=== PATIENT | female | born 1980 | race African-American/Black ===

== ENCOUNTER 2016-11-27 12:54 | Day surgery (SDC) | payer OTHER ==
[2016-11-23 14:39] VITALS: BMI 43.2
[~2016-11-27 12:54] MED LIST: LEVOFLOXACIN 500 MG PREMIX BAG IVPB ONE
[2016-11-27] MEDS ORDERED: oxyCODONE HCL 5 MG TABLET PO PRN (13:39)
[2016-11-27] MEDS ORDERED: ONDANSETRON 4 MG/2 ML VIAL IVPUSH PRN (13:39)
[2016-11-27] MEDS ORDERED: LACTATED RINGERS SOLUTION 1,000 ML IV SCH (13:45)
[2016-11-27] MEDS ORDERED: PROPOFOL 20 ML ONE (14:11)
[2016-11-27] MEDS ORDERED: MIDAZOLAM HCL 2 MG/2 ML SINGLE DOSE VIAL ONE ×2 (14:11→14:16)
[2016-11-27] MEDS ORDERED: LEVOFLOXACIN 500 MG PREMIX BAG IVPB ONE (14:16)
[2016-11-27 15:04] VITALS: TEMP 98
--- NOTE | 2016-11-27 16:44 | OP ---
Operative Note - Note: Operative Date: 11/27/16 Pre-Operative Diagnosis: right renal stones Operation: right eswl Findings: 9mm right mid pole stone Post-Operative Diagnosis: Same as Pre-op Surgeon: Sina Kerr Anesthesia: General
[2016-11-27 16:48] VITALS: BP 120/68; PULSE 76
--- NOTE | 2016-11-28 14:42 | OP ---
DATE OF OPERATION: 11/27/2016 PREOPERATIVE DIAGNOSIS: Right renal stone. POSTOPERATIVE DIAGNOSIS: Right renal stone. PROCEDURE: Right extracorporeal shock wave lithotripsy. ATTENDING: Jackson Major MD ANESTHESIA: General. DESCRIPTION OF OPERATION: The patient was brought in the operating room and placed in supine position on the operating room table. Ultrasonography and fluoroscopy were performed. A right mid-pole stone measuring 9 mm was identified. General anesthesia and antibiotics were then administered. Extracorporeal shock wave lithotripsy was then performed; 3000 impulses at 20 joules of power were administered to the stone. Excellent fragmentation of the real-time ultrasonography and fluoroscopy was noted. No complications noted. The patient tolerated the procedure very well. Disposition of the patient was to the recovery room. JACKSON MAJOR M.D. [id number]
== END 2016-11-27 16:15 | disposition home or self-care (01) ==
LOC: JASU-SURG 12:54
PROVIDERS: ATTEND Urology
PROC: 0TF3XZZ Fragmentation in Right Kidney Pelvis, External Approach (ICD-10-PCS; principal; 2016-11-27 14:45)
DX: N20.0 Calculus of kidney (principal)
CPT/HCPCS: 84703; 94760

== ENCOUNTER 2022-11-09 05:00 | Day surgery (SDC) | payer OTHER ==
[2022-11-03 16:03] VITALS: BMI 45.1
[2022-11-09] MEDS ORDERED: ACETAMINOPHEN 1000 MG/100 ML BAG IVPB ONE (06:30)
[2022-11-09] MEDS ORDERED: CEFAZOLIN 3 GM in DEXTROSE 5%-WATER - 100 ML IVPB ONE (06:30)
[2022-11-09] MEDS ORDERED: PHENAZOPYRIDINE HCL 100 MG TABLET (FP) PO ONE (06:30)
[2022-11-09] MEDS ORDERED: ceFAZolin SODIUM 1 GM VIAL ONE ×3 (06:33→07:07)
[2022-11-09] MEDS ORDERED: DEXAMETHASONE SOD PHOSPHATE 4 MG/1 ML VIAL ONE ×2 (06:55→07:08)
[2022-11-09] MEDS ORDERED: METOCLOPRAMIDE HCL INJECTION 10 MG/2 ML VIAL ONE (06:55)
[2022-11-09] MEDS ORDERED: LIDOCAINE HCL/PF 2% SDV 5ML VIAL ONE (06:55)
[2022-11-09] MEDS ORDERED: SODIUM CHLORIDE 0.9% P/F 10 ML VIAL IJ ONE ×4 (06:55→07:11)
[2022-11-09] MEDS ORDERED: ONDANSETRON 4 MG/2 ML VIAL ONE (06:55)
[2022-11-09] MEDS ORDERED: KETOROLAC TROMETHAMINE 30 MG/1 ML VIAL ONE (06:59)
[2022-11-09] MEDS ORDERED: PROPOFOL 40 ML ONE (07:03)
[2022-11-09] MEDS ORDERED: HYDROmorphone HCl 2 MG/ML VIAL ONE (07:03)
[2022-11-09] MEDS ORDERED: ROCURONIUM BROMIDE 50 MG/5 ML SYRINGE ONE ×2 (07:03→09:00)
[2022-11-09] MEDS ORDERED: SUCCINYLCHOLINE CHLORIDE 200 MG/10 ML SYRINGE ONE (07:04)
[2022-11-09] MEDS ORDERED: MIDAZOLAM HCL 2 MG/2 ML SINGLE DOSE VIAL ONE (07:04)
[2022-11-09] MEDS ORDERED: ROPIVACAINE HCL 0.5% 30ML VIAL ONE (07:13)
[2022-11-09] MEDS ORDERED: TRANEXAMIC ACID 1000 MG/10 ML VIAL IVPUSH ONE (08:00)
[2022-11-09] MEDS ORDERED: ceFAZolin SODIUM 1 GM VIAL IVPB ONE (08:15)
[2022-11-09] MEDS ORDERED: HEPARIN NA (PORCINE) 5,000 UNITS/ML 1ML VIAL SQ ONE (08:30)
[2022-11-09 08:45] LABS: EPI CELLS 11 /uL (0-25.1); HYALINE CASTS 1 /uL (0-3.1); URINE APPEARANCE CLEAR; URINE BACTERIA 110 /uL (0-1359); URINE BILIRUBIN NEGATIVE (NEGATIVE); URINE COLOR YELLOW; URINE GLUCOSE (UA) NEGATIVE (NEGATIVE); URINE KETONE NEGATIVE (NEGATIVE); URINE LEUK ESTERASE 1+ (NEGATIVE); URINE NITRITE NEGATIVE (NEGATIVE); URINE PROTEIN NEGATIVE (NEGATIVE); URINE UROBILINOGEN 0.2 mg/dL (0.2-1.0); URINE WBC 191 /uL (0-25.8)
[2022-11-09 09:16] LABS: HCG,QUALITATIVE URINE Negative
[2022-11-09 09:32] LABS: URINE RBC 21 /uL (0-23.9)
[2022-11-09] MEDS ORDERED: SUGAMMADEX SODIUM 200 MG/2 ML VIAL ONE (10:13)
[2022-11-09] MEDS ORDERED: DOCUSATE SODIUM 100 MG CAPSULE (FP) PO PRN (11:28)
[2022-11-09] MEDS ORDERED: ONDANSETRON 4 MG/2 ML VIAL IVPUSH PRN (11:28)
[2022-11-09] MEDS ORDERED: SIMETHICONE 80 MG TAB.CHEW (FP) PO PRN (11:28)
[2022-11-09] MEDS ORDERED: BISACODYL 5 MG TABLET.DR (FP) PO PRN (11:28)
[2022-11-09] MEDS ORDERED: oxyCODONE HCL 5 MG TABLET PO PRN ×2 (11:28)
[2022-11-09] MEDS ORDERED: LACTATED RINGERS SOLUTION 1,000 ML IV SCH (11:30)
[2022-11-09] MEDS: CEFAZOLIN 1 GM in DEXTROSE 5%-WATER - 50 ML IVPB SCH ×2 (15:42→23:29)
[2022-11-09] MEDS: IBUPROFEN 800 MG/8 ML IJ IVPB SCH (17:27)
[2022-11-09 18:28] LABS: HEMATOCRIT 35.3 % (32.4-45.2); HEMOGLOBIN 11.7 GM/dL (10.7-15.3); MCH 26.8 pg (25.7-33.7); MCHC 33.2 g/dl (32.0-36.0); MEAN CELL VOLUME 80.7 fl (80-96); MEAN PLT VOLUME 8.7 fl (7.5-11.1); PLATELET COUNT 472 10^3/uL (134-434); RBC 4.38 M/mm3 (3.60-5.2); RDW 14.5 % (11.6-15.6); WHITE BLOOD COUNT 9.5 K/mm3 (4.0-10.0)
[2022-11-09 18:29] LABS: POTASSIUM 4.1 mmol/L (3.5-5.1)
[2022-11-09 18:31] LABS: CALCIUM 8.5 mg/dL (8.5-10.1)
[2022-11-09 18:32] LABS: BLOOD UREA NITROGEN 6.8 mg/dL (7-18)
[2022-11-09 18:34] LABS: CREATININE 0.9 mg/dL (0.55-1.3)
[2022-11-09] MEDS: ACETAMINOPHEN 325 MG TABLET (FP) PO SCH ×2 (18:35→23:35)
[2022-11-10] MEDS: IBUPROFEN 800 MG/8 ML IJ IVPB SCH ×2 (05:29→10:24)
[2022-11-10] MEDS: ACETAMINOPHEN 325 MG TABLET (FP) PO SCH (06:17)
[2022-11-10 08:54] LABS: HEMATOCRIT 29.7 % (32.4-45.2); HEMOGLOBIN 10.2 GM/dL (10.7-15.3); MCH 27.5 pg (25.7-33.7); MCHC 34.5 g/dl (32.0-36.0); MEAN CELL VOLUME 79.8 fl (80-96); MEAN PLT VOLUME 8.4 fl (7.5-11.1); PLATELET COUNT 427 10^3/uL (134-434); RBC 3.73 M/mm3 (3.60-5.2); RDW 14.4 % (11.6-15.6); WHITE BLOOD COUNT 8.7 K/mm3 (4.0-10.0)
[2022-11-10 08:59] LABS: POTASSIUM 3.5 mmol/L (3.5-5.1)
[2022-11-10] MEDS: CEFAZOLIN 1 GM in DEXTROSE 5%-WATER - 50 ML IVPB SCH (08:59)
[2022-11-10 09:05] VITALS: BP 131/91; PULSE 75; RESP 20; TEMP 98.4
[2022-11-10 09:28] LABS: CALCIUM 8.3 mg/dL (8.5-10.1)
[2022-11-10 09:29] LABS: BLOOD UREA NITROGEN 6.2 mg/dL (7-18)
[2022-11-10 09:32] LABS: CREATININE 0.8 mg/dL (0.55-1.3)
[2022-11-10] MEDS ORDERED: ENOXAPARIN NA (PORCINE) 40 MG/0.4 ML DISP.SYRIN SQ SCH (10:00)
[2022-11-10] MEDS ORDERED: IBUPROFEN 600 MG TABLET (FP) PO PRN (10:23)
== END 2022-11-10 11:15 | disposition home or self-care (01) ==
LOC: JASUSAT 05:00 → J3W 13:30 → JASUSAT 11-10 11:15
PROVIDERS: ATTEND Obstetrics & Gynecology
PROC: 0UT7FZZ Resection of Bilateral Fallopian Tubes, Via Natural or Artificial Opening With Percutaneous Endoscopic Assistance (ICD-10-PCS; 2022-11-09)
PROC: 8E0W4CZ Robotic Assisted Procedure of Trunk Region, Percutaneous Endoscopic Approach (ICD-10-PCS; 2022-11-09)
PROC: 0UB24ZZ Excision of Bilateral Ovaries, Percutaneous Endoscopic Approach (ICD-10-PCS; principal; 2022-11-09 07:30)
PROC: 0UT9FZZ Resection of Uterus, Via Natural or Artificial Opening With Percutaneous Endoscopic Assistance (ICD-10-PCS; 2022-11-09 07:30)
DX: D25.1 Intramural leiomyoma of uterus (principal); D25.0 Submucous leiomyoma of uterus; N83.12 Corpus luteum cyst of left ovary; N83.11 Corpus luteum cyst of right ovary
CPT/HCPCS: 58554; 58662; S2900; 36415; 80048; 81003; 81025; 84703; 85027; 86850; 86900; 86901; 88302-TC; 88305-TC; 88307-TC; 94010; 94760; J1644